=== PATIENT | male | born 1975 | race Caucasian/White ===

== ENCOUNTER 2019-11-11 05:15 | Emergency (ER) | payer SELFPAY ==
[~2019-11-11] VITALS: Ht 165.1 cm; Wt 74.8 kg
[2019-11-11 05:20] VITALS: BP 134/86
--- NOTE | 2019-11-11 05:49 | NUR ---
44 Y/O M PRESENTS TO ED C/O RUQ PAIN 02/19 X 4 DAYS. PT WAS SEEN AT [facility] ON 11/08 AND WAS GIVEN A REFERRAL TO A SPECIALTY DOCTOR BUT PER PT, WASN'T ABLE TO GET AN APPOINTMENT UNTIL 11/26/19. DENIES N/V/D. PT SITTING ON THE SIDE OF BED, BED IN LOWEST POSITION, SIDE RAIL UP X1. WILL CONTINUE TO MONITOR. MHX: SANGEETHAIES GEOVANNA
[2019-11-11] MEDS ORDERED: ALUMINUM HYD/MAG/SIMETHICONE 30 ML, DICYCLOMINE HCL LIQUID 20 MG, LIDOCAINE VISCOUS 2% ... PO ONE ×3 (05:50)
[2019-11-11] MEDS ORDERED: KETOROLAC 60 MG/2 ML VIAL IM ONE (05:50)
[2019-11-11] MEDS ORDERED: DICYCLOMINE HCL LIQUID 10 MG/5 ML UDC ONE ×2 (05:51→05:52)
[2019-11-11] MEDS ORDERED: LIDOCAINE VISCOUS 2% 20 ML UDC ONE ×2 (05:51→05:52)
[2019-11-11] MEDS ORDERED: ALUMINUM HYD/MAG/SIMETHICONE 30 ML UDC ONE ×2 (05:51→05:52)
[2019-11-11 06:23] LABS: APPEARANCE,URINE CLEAR (CLEAR); BILIRUBIN,URINE 2+ (NEGATIVE); BLOOD, URINE NEGATIVE (NEGATIVE); COLOR,URINE YELLOW (YELLOW); LEUKOCYTE ESTERASE ,URINE NEGATIVE (NEGATIVE); NITRITE, URINE NEGATIVE (NEGATIVE); UGLUCOSE NEGATIVE (NEGATIVE)
--- NOTE | 2019-11-11 06:24 | NUR ---
LABS AND URINE COLLECTED AND WALKED OVER TO LAB.
[2019-11-11 06:35] LABS: BASOPHILS # (AUTO) 0.1 K/uL (0.00-0.22); EOSINOPHILS % (AUTO) 0.3 % (0.0-4.0); HEMATOCRIT 49.6 % (36-52); HEMOGLOBIN 17.3 g/dL (12.0-18.0); LYMPHOCYTES # (AUTO) 1.2 K/uL (2.0-11.5); LYMPHOCYTES % (AUTO) 19.4 % (20.5-51.1); MEAN CORPUSCULAR HEMOGLOBIN 34 pg (27-31); MEAN CORPUSCULAR HGB CONC 35 g/dL (33-37); MEAN CORPUSCULAR VOLUME 98.1 fL (80-94); MONOCYTES # (AUTO) 0.9 K/uL (0.8-1.0); MONOCYTES % (AUTO) 14.6 % (1.7-9.3); NEUTROPHILS # (AUTO) 3.8 K/uL (1.8-7.7); NEUTROPHILS % (AUTO) 64.7 % (42.2-75.2); PLATELET COUNT (AUTO) 130 K/uL (140-450); RED BLOOD CELL COUNT(AUTO) 5.06 MIL/uL (4.20-6.10); WHITE BLOOD COUNT (AUTO) 5.9 K/uL (4.8-10.8)
[2019-11-11 06:42] LABS: ALBUMIN 3.8 g/dL (3.4-5.0); ANION GAP 13.2 (8-16); CARBON DIOXIDE 29.4 mmol/L (21-32); POTASSIUM 3.6 mmol/L (3.5-5.1); TOTAL BILIRUBIN 0.7 mg/dL (0.0-1.0)
[2019-11-11 07:11] VITALS: BP 134/86
--- NOTE | 2019-11-11 07:11 | NUR ---
Patient discharged with v/s stable. Written and verbal after care instructions given and explained. Patient alert, oriented and verbalized understanding of instructions. Ambulatory with steady gait. All questions addressed prior to discharge. ID band removed. Patient advised to follow up with PMD. Rx of NORCO AND PEPCID given. Patient educated on indication of medication including possible reaction and side effects. Opportunity to ask questions provided and answered.
[2019-11-11 07:32] LABS: RBC,URINE 0-5 /HPF (0-5); WBC,URINE 0-5 /HPF (0-5)
== END 2019-11-11 07:11 | disposition home or self-care (01) ==
LOC: MED 05:15
DX: K29.70 Gastritis, unspecified, without bleeding (principal); K80.50 Calculus of bile duct without cholangitis or cholecystitis without obstruction
CPT/HCPCS: 36415; 80053; 81001; 82150; 83690; 85025; 96372; 99284; J1885; 99283

== ENCOUNTER 2019-11-13 13:28 | Emergency (ER) | payer SELFPAY ==
[~2019-11-13] VITALS: Ht 165.1 cm; Wt 72.6 kg
[2019-11-13 13:40] VITALS: BP 131/81
--- NOTE | 2019-11-13 14:42 | NUR ---
COVID 19 SWAB COLLECTED FROM PT
--- NOTE | 2019-11-13 14:46 | NUR ---
44 Y/O MALE FROM HOME C/O DRY COUGH X 1 WK WITH CHEST PAIN PROVOKED BY COUGH. RR EVEN AND UNLABORED, SKIN WARM AND DRY TO THE TOUCH. 9/10 PAIN WITH COUGH. DENIES FEVER/CHILLS. UNKNOWN CONTACT WITH COVID. VSS MEDHX: DENIES
--- NOTE | 2019-11-13 15:20 | NUR ---
PT AWAKE AND ALERT. RR EVEN AND UNLABORED. VSS
[2019-11-13 16:25] VITALS: BP 130/79
--- NOTE | 2019-11-13 16:26 | NUR ---
Patient discharged with v/s stable. Written and verbal after care instructions given and explained. Patient alert, oriented and verbalized understanding of instructions. Ambulatory with steady gait. All questions addressed prior to discharge. ID band removed. Patient advised to follow up with PMD. Rx of AZITHROMYCIN 250MG, TYLENOL EXTRA STRENGTH 500MG AND TESSALON PERLES 200MG given. Patient educated on indication of medication including possible reaction and side effects. Opportunity to ask questions provided and answered.
--- NOTE | 2019-11-15 18:12 | NUR ---
+covid result from lab, copy will go to house sup and infection control
== END 2019-11-13 16:26 | disposition home or self-care (01) ==
LOC: MED 13:28 → EEVIPCON 13:28 → MED 16:26
DX: U07.1 COVID-19 (principal); R10.9 Unspecified abdominal pain
CPT/HCPCS: 71045; 99284; Q0092; U0003